=== PATIENT | male | born 1955 | race Caucasian/White ===

== ENCOUNTER → 2020-11-06 09:30 | Outpatient (BNVA) | payer MEDICAID, SELFPAY | PROVIDERS: Visit Provider Nurse Practitioner Family | DX: Z11.59 Encounter for screening for other viral diseases (principal); Z91.89 Other specified personal risk factors, not elsewhere classified; Z12.5 Encounter for screening for malignant neoplasm of prostate; M79.622 Pain in left upper arm; I73.9 Peripheral vascular disease, unspecified; I10 Essential (primary) hypertension; I25.10 Atherosclerotic heart disease of native coronary artery without angina pectoris; Z12.11 Encounter for screening for malignant neoplasm of colon | CPT/HCPCS: 86803; 87522; G0103 ==

== ENCOUNTER 2020-11-21 09:32 | Outpatient (CLI) | payer MEDICAID, SELFPAY ==
--- NOTE | 2020-11-21 09:43 | XRR_ITS ---
PROCEDURE INFORMATION: Exam: XR Left Shoulder Exam date and time: 11/21/2020 9:43 AM Age: 65 years old Clinical indication: Shoulder; Patient HX: Pain on left side after using shovel; Additional info: Acute pain TECHNIQUE: Imaging protocol: XR Left shoulder. Views: 2 or more views. COMPARISON: CR Chest 2 views* [id number] 10/06/2015 11:46 AM FINDINGS: Bones/joints: Visualized portions of the clavicle normal. Moderate degenerative changes of the acromioclavicular joint. Glenohumeral joint normal; Scapula normal; Visualized ribs and visualized pulmonary parenchyma normal; Coracoid process normal Soft tissues: Normal. XR/XR shoulder LT min 2V* [id number] IMPRESSION: Moderate degenerative changes of the acromioclavicular joint.
--- NOTE | 2020-11-21 09:43 | XRR_ITS ---
PROCEDURE INFORMATION: Exam: XR Cervical Spine Exam date and time: 11/21/2020 9:43 AM Age: 65 years old Clinical indication: Neck pain; Prior surgery; Surgery type: Jaw; Patient HX: Pain on left side after using shovel; Additional info: Acute pain TECHNIQUE: Imaging protocol: XR of the cervical spine. Views: 2 or 3 views. COMPARISON: CR Chest 2 views* [id number] 10/06/2015 11:46 AM FINDINGS: Bones/joints: Alignment is normal. posterior vertebral line and the spinal laminar line normal; odontoid process normal; no fracture; degenerative disc disease most pronounced C3-C4, C4-C5, C5-C6 and C6-C7 reflected as disk space narrowing and anterior osteophyte formation. Soft tissues: Unremarkable. XR/XR cervical spine 3V* [id number] IMPRESSION: Severe degenerative disc disease most pronounced C3-C4, C4-C5, C5-C6 and C6-C7 reflected as disk space narrowing and anterior osteophyte formation.
== END 2020-11-21 09:33 | disposition home or self-care (01) ==
PROVIDERS: PCP Nurse Practitioner Family; Visit Provider Nurse Practitioner Family
DX: M79.622 Pain in left upper arm (principal); M50.31 Other cervical disc degeneration, high cervical region
CPT/HCPCS: 72040; 73030

== ENCOUNTER → 2020-12-01 08:38 | Outpatient (BNVA) | payer MEDICAID, SELFPAY | PROVIDERS: PCP Nurse Practitioner Family; Referring Provider Nurse Practitioner Family; Visit Provider Orthopaedic Surgery | DX: M79.622 Pain in left upper arm (principal); M47.812 Spondylosis without myelopathy or radiculopathy, cervical region | CPT/HCPCS: 72040 ==

== ENCOUNTER 2021-01-19 12:54 | Outpatient (CLI) | payer MEDICAID, SELFPAY ==
--- NOTE | 2021-01-19 12:59 | MR_ITS ---
WS: [id number] MRI CERVICAL SPINE NONCONTRAST HISTORY: Neck and LEFT shoulder pain. COMPARISON: None available. Technique: Multiplanar, multisequence noncontrast imaging of the cervical spine. Multilevel advanced degenerative disc disease and osteophytosis. Most significant degenerative change s are at C3-4, C4-5 and C5-6. Signal within the cervical cord is normal. Visualized posterior fossa is unremarkable. Craniocervical junction, C1 and C2 relationship, odontoid process and soft tissues are normal. C2-C3: Central disc protrusion is very small. No stenosis. C3-C4: Moderate diffuse osteophytic ridging with disc bulging and a central disc protrusion. Deformit y of the cervical cord by the disc protrusion and osteophytes. Severe central and bilateral foraminal stenosis. RIGHT foraminal stenosis rated in the LEFT. Moderate facet joint arthritis. C4-C5: Diffuse osteophytic ridging and annular disc bulging with a central disc protrusion. Severe ce ntral and bilateral foraminal stenosis. Moderate facet joint arthritis. C5-C6: Diffuse osteophytic ridging and annular disc bulging. Severe central and bilateral foraminal s tenosis and facet arthritis. C6-C7: Small RIGHT foraminal osteophytes with mild foraminal narrowing. C7-T1: Normal. Paraspinal soft tissue are normal. MR/MR cervical spin wo con* [id number] IMPRESSION: 1. Severe central and bilateral foraminal stenosis at C3-4, C4-5 and C5-6 due to combination of osteophytic ridging, disc protrusions and facet arthritis. 2. Small RIGHT foraminal osteophyte at C6-7 with minimal narrowing of the fora men.
== END 2021-01-19 12:55 | disposition home or self-care (01) ==
LOC: RADSHAW 12:55
PROVIDERS: PCP Nurse Practitioner Family; Visit Provider Orthopaedic Surgery
DX: M54.2 Cervicalgia (principal); M25.512 Pain in left shoulder; M48.02 Spinal stenosis, cervical region; M25.78 Osteophyte, vertebrae
CPT/HCPCS: 72141

== ENCOUNTER 2021-02-01 15:00 | Outpatient (CLI) | payer MEDICAID, SELFPAY ==
--- NOTE | 2021-02-01 15:15 | MR_ITS ---
WS: [id number] MRI LEFT SHOULDER HISTORY: M54.2 - Cervicalgia COMPARISON: 11/21/2020 radiograph TECHNIQUE: Multiplanar sequences of the shoulder joint are submitted. The study is significantly compromised by motion artifact. Patient was unable to complete this examin ation and only a few sequences are submitted. Mild AC joint hypertrophy with osteophyte encroachment upon the supraspinatus muscle and tendon at th e medial humeral head. Moderate amount of fluid in the subacromial and subdeltoid bursa. No os acromi on. Biceps tendon is at the bicipital groove with increased fluid along the tendon sheath. Moderate atrophy and edema within the supraspinatus. There is a large amount of abnormal signal in th e expected location of the supraspinatus tendon beginning near the medial humeral head. Favor full-th ickness tear with retraction of the tendon. Large amount of fluid in the subscapularis recess. Evalua tion of the subscapularis and infraspinatus tendons is limited. There is a small amount of fluid axil maddy pouch. MR/MR shoulder LT wo con* [id number] IMPRESSION: 1. Extremely limited evaluation of the LEFT shoulder due to motion. Patient wa s unable to complete this examination secondary to pain. 2. Full-thickness tear of the supraspinatus tendon with retraction medial to t he humeral head. 3. Supraspinatus atrophy and edema. 4. AC joint arthritis with encroachment upon the rotator cuff.
== END 2021-02-01 15:01 | disposition home or self-care (01) ==
LOC: RADSHAW 15:02
PROVIDERS: PCP Nurse Practitioner Family; Visit Provider Orthopaedic Surgery
DX: M54.2 Cervicalgia (principal); M13.812 Other specified arthritis, left shoulder; R60.0 Localized edema; M75.102 Unspecified rotator cuff tear or rupture of left shoulder, not specified as traumatic
CPT/HCPCS: 73221

== ENCOUNTER → 2021-03-01 10:33 | Outpatient (BNVA) | payer MEDICAID, SELFPAY | PROVIDERS: PCP Nurse Practitioner Family; Referring Provider Orthopaedic Surgery; Visit Provider Anesthesiology Pain Medicine | DX: G89.29 Other chronic pain (principal); M48.02 Spinal stenosis, cervical region; M25.512 Pain in left shoulder; F17.210 Nicotine dependence, cigarettes, uncomplicated | CPT/HCPCS: 99205 ==

== ENCOUNTER → 2021-03-23 10:06 | Outpatient (BNVA) | payer MEDICAID, SELFPAY | PROVIDERS: PCP Nurse Practitioner Family; Visit Provider Orthopaedic Surgery | DX: Z20.822 Contact with and (suspected) exposure to COVID-19 (principal); Z01.812 Encounter for preprocedural laboratory examination | CPT/HCPCS: 87635 ==

== ENCOUNTER 2021-03-29 08:29 | Day surgery (SDC) | payer MEDICAID, SELFPAY ==
[2021-03-28 11:41] VITALS: BMI 18.0
[2021-03-29] VITALS (8 sets, daily range): BP systolic 120–165; BP diastolic 68–113; PULSE 88–128; RESP 16–20; TEMP 36.3–36.7; O2SAT 94–100
[2021-03-29] MEDS: sodium chloride 0.9% 1,000 ML 30 ML IV (09:05)
--- NOTE | 2021-03-29 09:24 | ANES.PREANE2 ---
Pre-Anesthetic Assessment Pre-Anesthetic Assessment: Height/Weight: Height 1.7 m Weight 52.163 kg Temp Pulse Resp BP Pulse Ox 98.0 F 94 18 127/76 97 03/29/21 09:01 03/29/21 09:01 03/29/21 09:01 03/29/21 09:01 03/29/21 09:01 Preop Diagnosis: Rotator cuff tear Left shoulder Proposed Procedure: Operation Date: 03/29/21 10:05 Proposed Procedures p Shoulder Arthroscopy 17492 M75.102(Left) - Joni Aguirre MD s Rotator Cuff Repair(Left) - Joni Aguirre MD Was Beta Donnie taken within 24 hours: N/A Was Clonidine taken within 24 hours: N/A Last intake: Intake Last Liquid Date 03/28/21 Last Liquid Time 20:00 Last Solid Date 03/28/21 Last Solid Time 17:00 Social: Social History: Tobacco Packs per day: 1 Comment: Smoked today. Exam: Pre-Anes Outpt Exam: alert, oriented x 3, clear to auscultation bilaterally (Expiratory wheeze.) and regular rate & rhythm Airway: Submandibular: WNL Cervical ROM: WNL MP: 2 Dentition: False Additional comments: Upper denture, poor dentition, missing most mandibular teeth. History/ROS: No significant complaints Pulmonary: Pulmonary: COPD CV/HEM: CV/HEM: CAD (Stents) and HTN Anesthetic Plan: ASA status: 3 Anesthesia: Anesthesia Evaluation, General and Regional (specify below) Other: Interscalene block Risk of > 500 ml blood loss (7ml/kg in children): No PFSH Anesthesia PFSH: Medical History ASHD (arteriosclerotic heart disease) CAD (coronary artery disease) Current smoker History of alcohol abuse Hypertension Mixed hyperlipidemia Myocardial infarct Peripheral vascular disease of extremity S/P angiogram of extremity Surgical History History of appendectomy Hx of tonsillectomy Family History Sister CAD (coronary artery disease), Onset Age: 50 Mother CAD (coronary artery disease), Onset Age: 30 Other Hypertension Denies family history of Cancer Social History Quit status (tobacco): not considering quitting Second hand smoke exposure: No Alcohol intake: never Desire information about alcohol rehabilitation?: No Desire information about substance/drug rehabilitation?: No Data Anesthesia Cardiac Studies: No Data to Display
--- NOTE | 2021-03-29 10:17 | P.HP_ITS ---
Same Day Surgery H&P Indication for Procedure/HPI DATE OF PROCEDURE: March 29, 2021 CHIEF COMPLAINT/INDICATIONFOR SURGICAL PROCEDURE: Left shoulder pain since spring with MRI showing tear left rotator cuff. Here for left rotator cuff repair PREOP DIAGNOSIS: Rotator cuff tear Left shoulder PLANNED PROCEDRUE: Operation Date: 03/29/21 10:05 Proposed Procedures p Shoulder Arthroscopy 29867 M75.102(Left) - Joni Aguirre MD s Rotator Cuff Repair(Left) - Joni Aguirre MD Medications/Allergies* Home Medications Medication Instructions Recorded Confirmed Type acetaminophen 500 mg capsule 1,500 mg PO .HS PRN cap 07/14/20 03/29/21 History cimetidine 200 mg tablet 200 mg PO BEDTIME tab 07/14/20 03/29/21 History Allergies/Adverse Reactions Allergy/AdvReac Type Severity Reaction Status Date / Time No Known Allergies Allergy Verified 03/28/21 11:39 Pertinent History/Comorbid Conditions* Medical History (Updated 11/06/20 @ 09:22 by Geovanna Rodriguez APRN) ASHD (arteriosclerotic heart disease) CAD (coronary artery disease) Current smoker History of alcohol abuse Hypertension Mixed hyperlipidemia Myocardial infarct Peripheral vascular disease of extremity S/P angiogram of extremity Surgical History (Updated 11/06/20 @ 09:22 by Geovanna Rodriguez APRN) History of appendectomy Hx of tonsillectomy Family History (Updated 11/06/20 @ 09:25 by Geovanna Rodriguez APRN) CAD (coronary artery disease) Sister, Onset Age: 50 Mother, Onset Age: 30 Hypertension Denies family history of Cancer Social History Quit status (tobacco): not considering quitting Second hand smoke exposure: No Alcohol intake: never Desire information about alcohol rehabilitation?: No Desire information about substance/drug rehabilitation?: No Pertinent Exam Findings alert, oriented x 3, clear to auscultation bilaterally and regular rate & rhythm Recommendations Surgery/Procedure today Coding Level of Care Code Acute Live In Companion 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
--- NOTE | 2021-03-29 12:58 | PM.OP ---
Operative Report Date of procedure: March 29, 2021 Pre-op Diagnosis: Rotator cuff tear Left shoulder Post-op diagnosis: same Post-op Findings: Full-thickness tear, type II acromion Procedure Done: Left arthroscopic rotator cuff repair, left subacromial decompression Implants: Monroy and Nephew Helicoil 4.5 mm anchors x2, Monroy [employer] Nephew Helicoil knotless, Pathology: none sent Anesthesia: General Estimated blood loss (mL): 10 Findings: The patient had a full-thickness tear of his left supraspinatus tendon beginning from the biceps tendon posteriorly approximately 2 cm with approximately 2-1/2 cm of tendinous retraction. Overall tendon and bone quality was excellent. His biceps tendon was stable in the bicipital groove. He had spurring along the leading edge of his acromion. He had no degenerative changes of his humeral head or glenoid Condition: stable Disposition: PACU Procedure: The patient was taken to the operating room where he was given an interscalene block and a general anesthesia. He was positioned in the lateral position with his left arm in gentle traction and draped in the usual fashion. He was given 2 g of Ancef. General anesthesia was performed. The shoulder was entered through a posterior portal to centimeters inferior medial to the posterior corner acromion. A scope cannula and trocar were driven into the glenohumeral joint. An 8 mm inflow cannula was placed anteriorly. The full-thickness tearing of the rotator cuff was identified. The biceps tendon was probed and found to be stable in the bicipital groove. The scope was then redirected into the subacromial space. Utilizing the Monroy and Nephew Werewolf probe X bursal tissue was removed and the rotator cuff tear was outlined. The tear seem to be a traumatic tear involving the entirety of the supraspinatus. Initial attention was paid to the undersurface of acromion. Utilizing a 5 5 acromionizer approximately 4 mm of anterior inferior acromion were removed to provide vascularity and make room for the repair. Tendon and bone quality was excellent and conditions were met for our repair. An incisor shaver was used to debride the tuberosity. A Monroy and Nephew Helicoil 4.5 mm anchor was placed in the posterior debrided tuberosity. 80 Monroy and [employer] FirstPass suture passer was used to shuttle each limb of tape through the posterior supraspinatus tendon approximately 8 mm from the retracted edge and approximately 8 mm apart. A second anchor was placed in the anterior debrided tuberosity and sutures passed in identical fashion. Each suture was secured with a sliding Perez knot and a half hitch bringing the medial cuff to bone. All 4 tapes were then passed through a knotless anchor which was placed in the central more lateral position. This brought the suture over the more lateral cuff tendon stabilizing the lateral rotator cuff. The repair was probed and found to be stable. Portals were closed with 3-0 Prolene. Sterile dressings were applied. The patient was placed in a sling extubated taken to recovery room in stable condition.
--- NOTE | 2021-03-29 15:33 | ANE.PACU2 ---
Inpatient post-anesthesia follow up: Airway intact: Yes Vital signs: Temperature 97.8 F Pulse Rate 88 Respiratory Rate 18 Blood Pressure 120/68 Pulse Oximetry 98 Oxygen Delivery Me thod Room Air Oxygen Flow Rate 8 Fraction of Inspir ed Oxygen Hydration adequate: Yes Nausea and vomiting: No Pain level: 1 Mental status: Baseline
== END 2021-03-29 14:35 | disposition home or self-care (01) ==
PROVIDERS: PCP Nurse Practitioner Family; Visit Provider Orthopaedic Surgery
PROC: (CPT 29805; principal; 2021-03-29 09:55)
PROC: (CPT 29826; 2021-03-29 09:55)
DX: M25.512 Pain in left shoulder (principal); I10 Essential (primary) hypertension; E78.2 Mixed hyperlipidemia; F17.210 Nicotine dependence, cigarettes, uncomplicated; I25.2 Old myocardial infarction; Z82.49 Family history of ischemic heart disease and other diseases of the circulatory system
CPT/HCPCS: 29826; 29827; 64415; 76942; C1713; J0690; J2250; J2370; J2704; J2710; J2795; J3010; J3490; J7030

== ENCOUNTER 2021-03-30 17:38 | Emergency (ER) | payer MEDICAID, SELFPAY ==
[2021-03-30 17:55] VITALS: BP 159/84; PULSE 97; RESP 20; TEMP 36.3; O2SAT 97; BMI 17.7
[2021-03-30 18:36] VITALS: BP 145/69; PULSE 77; RESP 16; O2SAT 100
--- NOTE | 2021-03-30 18:36 | ED_ITS ---
HPI - Recheck/Abnormal Lab/Rx General: Chief Complaint: Recheck/Abnormal Lab/Rx Stated Complaint: l shoulder pain s/p surgery yesterday Time Seen by Provider: 03/30/21 18:03 History of Present Illness: HPI narrative: Patient presents requesting pain medication. He was prescribed oxycodone and he states once he received that from the pharmacy realized that he did not want take that because this made him feel bad. He he said he told the surgeon that he did not want any of those type of products. complaint: other Review of Systems Const: Denies: fever(s) or chills Musc: Reports: joint pain (Postprocedural no change in condition. Desiring different pain medicine on) Psych: Denies: anxiety or depression PFSH ED PFSH: Medical History ASHD (arteriosclerotic heart disease) CAD (coronary artery disease) Current smoker History of alcohol abuse Hypertension Mixed hyperlipidemia Myocardial infarct Peripheral vascular disease of extremity S/P angiogram of extremity Surgical History History of appendectomy Hx of tonsillectomy Family History Sister CAD (coronary artery disease), Onset Age: 50 Mother CAD (coronary artery disease), Onset Age: 30 Other Hypertension Denies family history of Cancer Social History Quit status (tobacco): not considering quitting Second hand smoke exposure: No Alcohol intake: never Desire information about alcohol rehabilitation?: No Desire information about substance/drug rehabilitation?: No Physical Exam Const: COMMON NORMALS: no acute distress GENERAL APPEARANCE: cooperative Resp: COMMON NORMALS: normal respiratory effort Extremity: OTHER: Dressing in place. Distal neurovascular intact. Course Vital Signs: Vital signs: Vital Signs Temperature 97.4 F L 03/30/21 17:55 Pulse Rate 97 03/30/21 17:55 Respiratory Rate 20 H 03/30/21 17:55 Blood Pressure 159/84 03/30/21 17:55 Pulse Oximetry 97 03/30/21 17:55 Discharge Plan Discharge Patient Disposition: Home Clinical Impression: Other acute postprocedural pain Condition: Stable Prescriptions: New Celebrex 100 mg capsule 200 mg PO BID Qty: 20 RF: 0 No Action cimetidine [Tagamet HB] 200 mg tablet 200 mg PO BEDTIME RF: 0 gabapentin 300 mg capsule 300 mg PO TID Qty: 90 RF: 0 nitroglycerin [Nitrostat] 0.4 mg tablet, sublingual 0.4 mg SUBLINGUAL Q5M PRN (Reason: chest pain) Qty: 90 RF: 3 acetaminophen 500 mg capsule 1,500 mg PO .HS PRN (Reason: Pain) RF: 0 rosuvastatin [Crestor] 5 mg tablet 5 mg PO DAILY Qty: 90 RF: 3 Brilinta 90 mg tablet 90 mg PO BID Qty: 180 RF: 3 oxycodone 5 mg tablet 5 mg PO Q4H PRN (Reason: pain) Qty: 40 RF: 0 Discharge Orders: Discharge ED (Routine); Ordered 03/30/21 Ordered By: Balaji Nair Referrals: Geovanna Rodriguez APRN [Primary Care Provider] - Discharge Diet: Usual diet Discharge Activity: Increase activity as tolerated Patient Instructions: Opioid Safety Activity Restrictions/Additional Instructions: Follow-up Dr. Aguirre as necessary. Can apply ice to shoulder area to help with any discomfort. Coding Level of Care Code ED Printing Gray Cloth Tender 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
== END 2021-03-30 18:53 | disposition home or self-care (01) ==
PROVIDERS: Emergency Provider Nurse Practitioner Family; PCP Nurse Practitioner Family
DX: G89.18 Other acute postprocedural pain (principal); I25.10 Atherosclerotic heart disease of native coronary artery without angina pectoris; I10 Essential (primary) hypertension; E78.2 Mixed hyperlipidemia; I25.2 Old myocardial infarction
CPT/HCPCS: 99282

== ENCOUNTER → 2021-04-26 10:37 | Outpatient (BNVA) | payer MEDICAID, SELFPAY | PROVIDERS: PCP Nurse Practitioner Family; Visit Provider Anesthesiology Pain Medicine | DX: G89.29 Other chronic pain (principal); M47.812 Spondylosis without myelopathy or radiculopathy, cervical region; M54.12 Radiculopathy, cervical region; M48.02 Spinal stenosis, cervical region; M25.519 Pain in unspecified shoulder; Z79.891 Long term (current) use of opiate analgesic | CPT/HCPCS: 99214 ==

== ENCOUNTER → 2021-05-21 12:35 | Outpatient (BNVA) | payer MEDICAID, SELFPAY | PROVIDERS: PCP Nurse Practitioner Family; Visit Provider Anesthesiology Pain Medicine | DX: M54.12 Radiculopathy, cervical region (principal); F17.210 Nicotine dependence, cigarettes, uncomplicated | CPT/HCPCS: 62321; J1100 ==

== ENCOUNTER → 2021-05-25 11:57 | Outpatient (BNVA) | payer MEDICAID, SELFPAY | PROVIDERS: PCP Nurse Practitioner Family; Visit Provider Nurse Practitioner Family | DX: Z00.00 Encounter for general adult medical examination without abnormal findings (principal); Z12.5 Encounter for screening for malignant neoplasm of prostate; I25.10 Atherosclerotic heart disease of native coronary artery without angina pectoris | CPT/HCPCS: 80053; 80061; 83036; 84153 ==

== ENCOUNTER → 2021-05-30 16:52 | Outpatient (BNVA) | payer MEDICAID, SELFPAY | PROVIDERS: PCP Nurse Practitioner Family; Visit Provider Internal Medicine | DX: Z20.822 Contact with and (suspected) exposure to COVID-19 (principal); Z01.812 Encounter for preprocedural laboratory examination | CPT/HCPCS: 87635 ==

== ENCOUNTER 2021-06-04 07:31 | Day surgery (SDC) | payer MEDICAID, SELFPAY ==
[2021-05-30 14:04] VITALS: BMI 2343.3
--- NOTE | 2021-06-04 07:10 | P.HP_ITS ---
Same Day Surgery H&P Indication for Procedure/HPI DATE OF PROCEDURE: June 04, 2021 CHIEF COMPLAINT/INDICATIONFOR SURGICAL PROCEDURE: Screening PREOP DIAGNOSIS: Rotator cuff tear Left shoulder PLANNED PROCEDURE: Operation Date: 06/04/21 08:45 Proposed Procedures p Colonoscopy 65619 G0121 Z12.11(Not Applicable) - Saurabh Hassan MD Medications/Allergies* Home Medications Medication Instructions Recorded Confirmed Type acetaminophen 500 mg capsule 1,500 mg PO .HS PRN cap 07/14/20 06/01/21 History cimetidine 200 mg tablet 200 mg PO BEDTIME tab 07/14/20 06/01/21 History Allergies/Adverse Reactions Allergy/AdvReac Type Severity Reaction Status Date / Time No Known Allergies Allergy Verified 05/25/21 10:36 Pertinent History/Comorbid Conditions* Medical History (Updated 05/25/21 @ 11:24 by FCO Saucedo) ASHD (arteriosclerotic heart disease) CAD (coronary artery disease) Current smoker History of alcohol abuse Mixed hyperlipidemia Myocardial infarct Peripheral vascular disease of extremity S/P angiogram of extremity Surgical History (Updated 05/09/21 @ 11:12 by Joni Aguirre MD) History of appendectomy Hx of tonsillectomy Family History (Updated 11/06/20 @ 09:25 by FCO Saucedo) CAD (coronary artery disease) Sister, Onset Age: 50 Mother, Onset Age: 30 Hypertension Denies family history of Cancer Social History Smoking and tobacco status: current every day smoker cigarettes Quit status (tobacco): not considering quitting Second hand smoke exposure: No Alcohol intake: never Desire information about alcohol rehabilitation?: No Desire information about substance/drug rehabilitation?: No Pertinent Exam Findings alert, oriented x 3, clear to auscultation bilaterally, regular rate & rhythm, operative site marked and procedure specific exam findings Recommendations Surgery/Procedure today Coding Level of Care Code Acute Activities Director Scouting 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
--- NOTE | 2021-06-04 07:53 | ANES.PREANE2 ---
Pre-Anesthetic Assessment Pre-Anesthetic Assessment: Height/Weight: Height 15.24 cm Weight 54.431 kg Preop Diagnosis: Rotator cuff tear Left shoulder Proposed Procedure: Operation Date: 06/04/21 08:45 Proposed Procedures p Colonoscopy 91034 G0121 Z12.11(Not Applicable) - Saurabh Hassan MD Was Beta Donnie taken within 24 hours: N/A Was Clonidine taken within 24 hours: N/A Social: Social History: Tobacco and No alcohol Exam: Pre-Anes Outpt Exam: alert, oriented x 3 and regular rate & rhythm Airway: Submandibular: WNL Cervical ROM: WNL MP: 2 Dentition: Chipped and False (uppers) Additional comments: Very poor dentition Pulmonary: Pulmonary: COPD CV/HEM: CV/HEM: CAD (stents), HTN and PVD Metabolic: Metabolic: Hyperlipidemia Musc/skel: Musc/skel: Lower Back Pain and OA/DJD Anesthetic Plan: ASA status: 3 Anesthesia: MAC Risk of > 500 ml blood loss (7ml/kg in children): No PFSH Anesthesia PFSH: Medical History ASHD (arteriosclerotic heart disease) CAD (coronary artery disease) Current smoker History of alcohol abuse Hypertension Mixed hyperlipidemia Myocardial infarct Peripheral vascular disease of extremity S/P angiogram of extremity Surgical History History of appendectomy Hx of tonsillectomy Family History Sister CAD (coronary artery disease), Onset Age: 50 Mother CAD (coronary artery disease), Onset Age: 30 Other Hypertension Denies family history of Cancer Social History Smoking and tobacco status: current every day smoker cigarettes Quit status (tobacco): not considering quitting Second hand smoke exposure: No Alcohol intake: never Desire information about alcohol rehabilitation?: No Desire information about substance/drug rehabilitation?: No Data Anesthesia Cardiac Studies: No Data to Display
[2021-06-04 08:17] VITALS: BP 143/84; PULSE 110; RESP 18; TEMP 36.8; O2SAT 97
[2021-06-04] MEDS: sodium chloride 0.9% 1,000 ML 30 ML IV (08:20)
[2021-06-04 09:24] VITALS: BP 92/55; PULSE 76; RESP 16; TEMP 36.5; O2SAT 98
[2021-06-04 09:48] VITALS: BP 121/73; PULSE 94; RESP 18; O2SAT 98
--- NOTE | 2021-06-04 14:14 | ANE.PACU2 ---
Inpatient post-anesthesia follow up: Airway intact: Yes Vital signs: Temperature 97.7 F Pulse Rate 94 Respiratory Rate 18 Blood Pressure 121/73 Pulse Oximetry 98 Oxygen Delivery Me thod Room Air Oxygen Flow Rate 3 Fraction of Inspir ed Oxygen Hydration adequate: Yes Nausea and vomiting: No Pain level: 1 Mental status: Baseline
== END 2021-06-04 10:05 | disposition home or self-care (01) ==
PROVIDERS: PCP Nurse Practitioner Family; Visit Provider Internal Medicine
PROC: 0DJD8ZZ Inspection of Lower Intestinal Tract, Via Natural or Artificial Opening Endoscopic (ICD-10-PCS; CPT 45378; principal; 2021-06-04 08:45)
DX: Z12.11 Encounter for screening for malignant neoplasm of colon (principal); D12.3 Benign neoplasm of transverse colon; K64.8 Other hemorrhoids; J44.9 Chronic obstructive pulmonary disease, unspecified; I25.10 Atherosclerotic heart disease of native coronary artery without angina pectoris; Z95.5 Presence of coronary angioplasty implant and graft; I10 Essential (primary) hypertension; M19.90 Unspecified osteoarthritis, unspecified site; F17.210 Nicotine dependence, cigarettes, uncomplicated; E78.2 Mixed hyperlipidemia; I25.2 Old myocardial infarction; Z82.49 Family history of ischemic heart disease and other diseases of the circulatory system
CPT/HCPCS: 45385; 88305; J2704; J7030

== ENCOUNTER → 2021-08-16 00:01 | Outpatient (BNVA) | payer MEDICAID, SELFPAY | PROVIDERS: PCP Nurse Practitioner Family; Visit Provider Orthopaedic Surgery | DX: Z20.822 Contact with and (suspected) exposure to COVID-19 (principal) | CPT/HCPCS: 87635 ==

== ENCOUNTER 2021-08-23 06:10 | Day surgery (SDC) | payer MEDICAID, SELFPAY ==
[2021-08-22 14:23] VITALS: BMI 19.5
[2021-08-23] VITALS (11 sets, daily range): BP systolic 127–175; BP diastolic 64–104; PULSE 92–112; RESP 18–20; TEMP 36.2–36.8; O2SAT 94–99
[2021-08-23] MEDS: acetaminophen 500 mg Tablet 1000 MG PO (06:38)
[2021-08-23] MEDS: sodium chloride 0.9% 1,000 ML 30 ML IV (06:39)
--- NOTE | 2021-08-23 06:54 | ANES.PREANE2 ---
Pre-Anesthetic Assessment Height/Weight: Height 1.68 m Weight 54.885 kg Temp Pulse Resp BP Pulse Ox 97.5 F L 94 18 127/66 97 08/23/21 06:23 08/23/21 06:23 08/23/21 06:23 08/23/21 06:23 08/23/21 06:23 Preop Diagnosis: Screening Operation Date: 08/23/21 07:00 Proposed Procedures p Manipulation L Shoulder Under Anesthesia 68829/m75.02(Left) - Joni Aguirre MD Familial anesthetic complications: None Was Beta Donnie taken within 24 hours: N/A Was Clonidine taken within 24 hours: N/A Last intake: Intake Last Liquid Date 08/22/21 Last Liquid Time 23:30 Last Solid Date 08/22/21 Last Solid Time 20:00 Social Alcohol (Hx of ETOH abuse) and Tobacco Exam alert, oriented x 3 and regular rate & rhythm Wheezing b/l Airway Submandibular: within normal limits Cervical ROM: Other (Limited due to pain, able to extend flex full ROM w/ effort) Mallampati: Class I Dentition: chipped and partials Comments: Comments: very poor dention Pulmonary Chronic Obstructive Pulmonary Disease CV/HEM Coronary Artery Disease (S/P coronary stents), Myocardial Infarction and Peripheral Vascular Disease METS > 4 None reported Hepatic None reported GI Gastroesophageal Reflux Disease Symptomatic GERD with vomiting and nausea at night when does not take medications Metabolic None reported Musc/skel None reported Neuropsych None reported Anesthetic Plan ASA status: 3 Anesthesia: Anesthesia Evaluation and Regional (specify below) (PRN post op block if needed) Other: We discussed risk and benefits of general anesthesia including PONV, sore throat (sometimes severe), corneal abrasion, positioning and peripheral nerve injuries, life threatening allergic reaction, post operative ICU admission requiring prolonged intubation, stroke, heart attack, , and rare incidences of recall. Patient consents to proceed with general anesthesia. We discussed risk and benefits of nerve block for post op pain control including management of pain and titration of pain medications as signs/symptoms of nerve block wearing off begin to appear and/or prior bed. We discussed risk of failed nerve block, vascular injury or other vital structure injury, abscess/infection, LAST, and nerve injury. Risk of > 500 ml blood loss (7ml/kg in children): No Medications/Allergies Home Medications Medication Instructions Recorded Confirmed Last Taken Type nitroglycerin 0.4 mg sublingual 0.4 mg SUBLINGUAL Q5M PRN #90 tab 10/06/19 08/22/21 Unknown Rx tablet (Nitrostat) acetaminophen 500 mg capsule 1,500 mg PO .HS PRN cap 07/14/20 08/23/21 08/22/21 History cimetidine 200 mg tablet (Tagamet 200 mg PO BEDTIME tab 07/14/20 08/23/21 08/22/21 History HB) rosuvastatin 5 mg tablet (Crestor) 5 mg PO DAILY #90 tab 07/27/20 08/23/21 08/13/21 Rx ticagrelor 90 mg tablet (Brilinta) 90 mg PO BID #180 tab 12/25/20 08/22/21 08/13/21 Rx celecoxib 200 mg capsule 200 mg PO Q12H 15 Days #30 cap 08/23/21 Unknown Rx oxycodone 5 mg tablet 5 mg PO Q4H PRN #40 tab 08/23/21 Unknown Rx Allergies Allergy/AdvReac Type Severity Reaction Status Date / Time No Known Allergies Allergy Verified 08/08/21 13:36 Current Medications Generic Name Dose Route Start Last Admin Trade Name Freq PRN Reason Stop Dose Admin Sodium Chloride 1,000 mls @ 30 mls/hr 08/23/21 06:15 08/23/21 06:39 Sodium Chloride 0.9% IV 08/24/21 06:14 30 mls/hr .Q24H CHRISTOPH Administration PFSH Anesthesia Medical History ASHD (arteriosclerotic heart disease) CAD (coronary artery disease) Current smoker History of alcohol abuse Mixed hyperlipidemia Myocardial infarct Peripheral vascular disease of extremity S/P angiogram of extremity Surgical History History of appendectomy Hx of tonsillectomy Family History Sister CAD (coronary artery disease), Onset Age: 50 Mother CAD (coronary artery disease), Onset Age: 30 Other Hypertension Denies family history of Cancer Social History Smoking and tobacco status: current every day smoker cigarettes Quit status (tobacco): not considering quitting Second hand smoke exposure: No Alcohol intake: never Desire information about alcohol rehabilitation?: No Desire information about substance/drug rehabilitation?: No Data Anesthesia Cardiac Studies: No Data to Display
--- NOTE | 2021-08-23 07:01 | W.PM.OPSUD ---
Surgery/Procedure H&P Update DATE OF PROCEDURE: August 23, 2021 DATE H&P PERFORMED: 08/08/21 H&P UPDATE INFORMATION: I have reviewed H&P completed within last 30 days PREOP DIAGNOSIS: Arthrofibrosis status post rotator cuff repair 03/29/2021 PLANNED PROCEDURE: Operation Date: 08/23/21 07:00 Proposed Procedures Diagnostic arthroscopy, release of adhesions, other inidicated procedures.
[2021-08-23] MEDS: famotidine 20 mg/2 mL INJ IVP (07:04)
--- NOTE | 2021-08-23 08:24 | P.OP_ITS ---
Operative Report Date of procedure: August 23, 2021 Pre-op diagnosis: Preop Diagnosis Arthrofibrosis status post rotator cuff repair 03/29/2021 Post-op diagnosis: same Post-op diagnosis: The patient had adhesions between his deltoid and superior rotator cuff. His rotator cuff was healed. Procedure done: Arthroscopic debridement of adhesions subacromial space and glenohumeral joint (extensive debridement Pathology: none sent Surgeon: Joni Aguirre Anesthesia: General Estimated blood loss (mL): 10 Findings: The patient had adhesions between the deltoid and rotator cuff and the lateral humerus. The repair from both the bursal and articular aspect was healed. Preoperative motion was to 140 degrees of flexion compared to 170 on the contralateral side. He had 45 degrees of external rotation compared to 60 deg rylie on the contralateral side. Condition: stable Brief History: Mr. Corrales underwent arthroscopic left rotator cuff repair in March with persistent loss of motion and pain despite efforts with home exercise program. Unfortunately physical therapy was not a covered Medicaid benefit. Due to pain and functional limitations he was taken back to the operating room today for release of adhesions and evaluation of his rotator cuff repair. Procedure: The patient was given 2 g of Ancef and a general anesthesia. Initially the range of motion was noted with losses of flexion and external rotation noted as above and the operative findings. The shoulder was manipulated 270 degrees of flexion identical to the contralateral side with adhesions felt to release. At the with the elbow at his side it was then externally rotated to 60 degrees again with additional adhesions are released. he was positioned in the lateral position a timeout was performed. He was prepped and draped in the usual fashion with his left arm in 15 pounds of traction. The subacromial space was initially entered through the previously placed posterior portal a anterior lateral portal were opened up through previous scars. The bursal rotator cuff was inspected and found to be free of healing. Adhesions were identified between the deltoid and the humerus predominantly laterally and anteriorly. Utilizing the [employer] probe adhesions are released and hemostasis was sequentially released beginning in the lateral subacromial space and lateral deltoid humeral interval progressing anteriorly and finally posterior. Accomplished. The scope was then moved to the glenohumeral joint and the articular aspect the rotator cuff identified. Hematoma was identified which was removed with the incisor shaver. Previously placed stitches were noted. No significant articular sided or other rotator cuff tearing was identified. Debridement was accomplished of synovial tissue in the area of the rotator interval and the undersurface of the rotator cuff. Arthroscopy equipment was removed. Portals were closed with 3-0 Prolene. Sterile dressings were applied. The patient was placed in a sling, extubated, and taken recovery room in stable condition
[2021-08-23] MEDS: HYDROmorphone 1 mg/mL INJ 1 mL 0.5 MG IVP (08:41)
--- NOTE | 2021-08-23 13:14 | ANE.PACU2 ---
Inpatient post-anesthesia follow up: Airway intact: Yes Vital signs: Temperature 98.2 F Pulse Rate 96 Respiratory Rate 18 Blood Pressure 172/72 Pulse Oximetry 97 Oxygen Delivery Me thod Room Air Oxygen Flow Rate 6 Fraction of Inspir ed Oxygen Hydration adequate: Yes Nausea and vomiting: No Pain level: 5 Mental status: Baseline
== END 2021-08-23 11:18 | disposition home or self-care (01) ==
PROVIDERS: PCP Nurse Practitioner Family; Visit Provider Orthopaedic Surgery
PROC: (CPT 29805; principal; 2021-08-23 07:00)
DX: M24.612 Ankylosis, left shoulder (principal); M75.02 Adhesive capsulitis of left shoulder; J44.9 Chronic obstructive pulmonary disease, unspecified; I25.10 Atherosclerotic heart disease of native coronary artery without angina pectoris; Z95.5 Presence of coronary angioplasty implant and graft; I25.2 Old myocardial infarction; I73.9 Peripheral vascular disease, unspecified; K21.9 Gastro-esophageal reflux disease without esophagitis; E78.2 Mixed hyperlipidemia; Z82.49 Family history of ischemic heart disease and other diseases of the circulatory system
CPT/HCPCS: 29823; J0690; J1170; J2710; J3010; J3490; J7030

== ENCOUNTER → 2021-10-16 09:50 | Outpatient (BNVA) | payer MEDICAID, SELFPAY | PROVIDERS: PCP Nurse Practitioner Family; Visit Provider Nurse Practitioner Family | DX: Z98.890 Other specified postprocedural states (principal); M75.02 Adhesive capsulitis of left shoulder | CPT/HCPCS: 99213 ==

== ENCOUNTER → 2021-12-17 13:53 | Outpatient (BNVA) | payer MEDICAID, SELFPAY | PROVIDERS: PCP Nurse Practitioner Family; Visit Provider Internal Medicine | DX: I73.9 Peripheral vascular disease, unspecified (principal); I10 Essential (primary) hypertension; I25.10 Atherosclerotic heart disease of native coronary artery without angina pectoris; F17.210 Nicotine dependence, cigarettes, uncomplicated | CPT/HCPCS: 99214 ==

== ENCOUNTER 2022-10-01 17:52 | Inpatient (IN) | payer MEDICARE, MEDICAID, SELFPAY ==
[2022-10-01 17:52] VITALS: BP 136/87; PULSE 78; RESP 18; TEMP 36.8; O2SAT 100; BMI 19.3
--- NOTE | 2022-10-01 17:54 | ECG_ITS ---
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 Measurements Intervals [place] Rate: 90 P: 79 IA: 182 QRS: 80 QRSD: 93 T: 100 QT: 388 QTc: 475 Interpretive Statements SINUS RHYTHM INFERIOR MYOCARDIAL INFARCTION , POSSIBLY ACUTE [40+ ms Q WAVE AND/OR ST/T ABNORMALITY IN II/aVF] ACUTE PA Compared to ECG 10/10/2015 06:06:34 Myocardial infarct finding now present Electronically Signed On 10-02-2022 17:50:35 CDT by Nate Antonio M.D. [email or web address]
--- NOTE | 2022-10-01 17:59 | W.ED.CHESTPA ---
HPI - Chest Pain General: Chief Complaint: Chest Pain Stated Complaint: cp Time Seen by Provider: 10/01/22 17:57 History of Present Illness: Patient presents to the ER by EMS on STEMI alert. Patient began having chest pain 30 minutes prior. Patient does have a cardiac history. Patient was outside working and started having chest pain patient took 3 nitro and 324 mg aspirin total. EKG was immediately obtained that showed acute CT Dr. 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 Onset (ago): minute(s) (30 minutes prior) Timing of current episode: constant Prior episodes: Yes Onset: during exertion Pain location: left chest Severity: severe Quality: similar to prior CT Relieving factors: nothing Exacerbating factors: exertion Treatment prior to arrival: aspirin and nitroglycerin Review of Systems General: Reports: 10 or more systems reviewed and unremarkable except in HPI and below PFSH ED PFSH: Medical History (Updated 10/01/22 @ 18:08 by Nate Antonio M.D) ASHD (arteriosclerotic heart disease) Chest pain Current smoker GERD (gastroesophageal reflux disease) History of alcohol abuse Lumbar back pain with radiculopathy affecting lower extremity Mixed hyperlipidemia Myocardial infarct Peripheral vascular disease of extremity S/P angiogram of extremity Surgical History History of appendectomy History of facial fracture repair right cheek History of repair of rotator cuff Hx of tonsillectomy Family History Sister CAD (coronary artery disease), Onset Age: 50 Mother CAD (coronary artery disease), Onset Age: 30 Other Hypertension Denies family history of Cancer Social History Smoking and tobacco status: current every day smoker cigarettes Quit status (tobacco): not considering quitting Second hand smoke exposure: No Alcohol intake: current Alcohol intake frequency: holidays/special occasions only Alcohol type: beer and hard liquor Desire information about alcohol rehabilitation?: No Substance/Drug Use: current Substance/Drug use frequency: daily Other substance/drug use details: Medicinal purposes Desire information about substance/drug rehabilitation?: No Household members: spouse Marital status: Current occupational status: disabled Current gender identity: Male Physical Exam Const: COMMON NORMALS: average body habitus, patient oriented x3, no limitations, alert and well nourished HENMT: COMMON NORMALS: normocephalic, atraumatic, hearing grossly normal bilaterally, external ears normal, Normal external nose present and moist oral mucous membranes HEAD & SCALP: normocephalic and atraumatic NOSE: Normal external nose present EXTERNAL EAR: Yes external ears normal Eye: COMMON NORMALS: Equal, round and reactive pupils present, EOMs intact bilaterally, conjunctivae normal and no scleral icterus CONJUNCTIVA: Yes conjunctivae normal PUPIL: Yes Equal, round and reactive pupils present Neck/C-Spine: COMMON NORMALS: no JVD Resp: COMMON NORMALS: normal respiratory effort, No retractions, No use of accessory muscles and clear to auscultation bilaterally AUSCULTATION: clear to auscultation bilaterally Cardio: COMMON NORMALS: no JVD, regular rate, regular rhythm, S1 normal heart sound present and S2 normal heart sound present RATE: regular rate RHYTHM: regular rhythm HEART SOUNDS: S1 normal heart sound present and S2 normal heart sound present GI: COMMON NORMALS: Normal to inspection, nondistended, normoactive bowel sounds present, Soft to palpation, non-tender, No hepatosplenomegaly present and no masses PALPATION: Yes Soft to palpation and Yes No hepatosplenomegaly present Neuro: COMMON NORMALS: patient oriented x3 SENSORIUM/ORIENTATION: Yes alert Course Vital Signs: Vital signs: Vital Signs Temperature 98.2 F 10/01/22 17:52 Pulse Rate 78 10/01/22 17:52 Respiratory Rate 18 10/01/22 17:52 Blood Pressure 136/87 10/01/22 17:52 Pulse Oximetry 100 10/01/22 17:52 MDM - Chest Pain Medical Decision Making Patient was seen upon arrival by EMS EKG was immediately obtained which showed acute CT of ST segment elevation in 2 3 and aVF. And also had ST depression in V4 and V5. Dr. Antonio was present in the ED agreed with acute CT and will be taken the patient immediately to [facility]. Patient was given Plavix 600 mg p.o., loading dose of heparin, and transported to the [facility]idential [facility]. Differential Diagnosis Likely acute myocardial infarction; Unlikely acute massive pulmonary embolism, acute respiratory failure, cardiac arrest or sudden cardiac Medical Records I reviewed the patient's medical records. Lab Data I reviewed the patient's lab results. EKG Data EKG 1: I personally reviewed and interpreted this EKG as follows: EKG interpretation date: 10/01/22 EKG interpretation time: 17:54 Prior EKG tracings: not available for review Interpretation: EKG showed ventricular rate of 90 bpm, NH interval of 182, QRS duration of 93, QTc of 435, normal sinus rhythm with inferior myocardial infarction with ST elevation in [address] depression in V4 and V5. Discharge Plan Discharge Clinical Impression: Acute CT Condition: Stable Prescriptions: No Action acetaminophen 500 mg capsule 500 mg PO Q6H PRN (Reason: fever) Qty: 30 0RF omeprazole 20 mg capsule,delayed release(DR/EC) 20 mg PO .qhs Qty: 30 5RF nitroglycerin 0.4 mg tablet, sublingual 0.4 mg sublingual Q5M PRN (Reason: chest pain) Qty: 10 0RF Rx Instructions: do not exceed 3 doses per episode meloxicam 15 mg tablet 15 mg PO DAILY Qty: 30 5RF triamcinolone acetonide 0.1 % cream 1 applic topical BID Qty: 30 0RF rosuvastatin [Crestor] 5 mg tablet 5 mg PO DAILY Qty: 90 3RF Brilinta 90 mg tablet 90 mg PO BID Qty: 180 3RF tramadol 50 mg tablet 50 mg PO DAILY PRN (Reason: pain) 30 Days Qty: 30 3RF Referrals: Senthil Jimenez MD [Primary Care Provider] - Coding Level of Care Code ED Civil Transportation Engineer for [facility]
--- NOTE | 2022-10-01 18:00 | XACV_ITS ---
Exam Room: 2 Ht: 168 cm Wt: 54 kg BSA: 1.59 m2 Gender: Male : 1955 Any Known Allergies: No known allergies Exam Priority: Routine Procedure(s): Procedure Description: Diagnostic procedure Procedure Description: PCI procedure Procedure Description: Left Heart Catheterization Procedure Description: Left ventriculography Procedure Description: Bare Metal Coronary Stent Procedure Description: PTCA Procedure Description: Coronary Angiography Diagnostic Cath Status: Emergency Diagnostic Findings * Left Main is short and has no significant disease. * Circumflex has diffuse mild to moderate luminal irregularities.. * RCA has multiple prior stents. In the midsegment, stent is totally occluded and has thrombus in it. This is culprit lesion for ST elevation MO. * P * roximal Right Coronary Artery: significant 80% stenosis, RACHEL: 3 flow. * Left Anterior Descending has patent prior stent. Minimal luminal irregularities are seen. * INDICATION: STEMI. * Mid Right Coronary Artery: total occlusion, RACHEL: 0 flow. * Coronary angiography shows right dominance. PCI Status: Emergency PCI Indication: STEMI - Immediate PCI for STEMI Interventional Findings * Procedure detail: We engaged RCA with JR4 guide catheter. IV heparin was administered to maintain anticoagulation. 0.014 run-through guidewire was used to cross totally occluded mid RCA and was put in distal vessel. We dilated the stent with 3.5 x 12 mm NC balloon at high pressure. It restored excellent flow. Proximal to prox RCA prior stent, another significant stenosis was noted. We deployed a 3.5 x 12 mm resolute Sae drug-eluting stent. This was postdilated by 3.5 x 12 mm NC balloon at high pressure. At this time final angiogram was performed that showed excellent stent expansion, no residual stenosis and RACHEL-3 flow. 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 * Proximal Right Coronary Artery: 80% stenosis treated with a MDT R SAE 3.5X12 OLU. 0% residual stenosis, RACHEL: 3 flow. * Mid Right Coronary Artery: 100% stenosis treated with a MDT NC EUPHORA RX [id number] BALLOON. 0% residual stenosis, RACHEL: 3 flow. Conclusions 1. Total thrombotic occlusion of mid RCA stent 2. s/p successful revascularization with balloon angioplasty.. 3. Severe proximal RCA stenosis s/p successful revascularization with OLU x1. 4. Proximal Right Coronary Artery was treated with a Drug Eluting Stent. 5. Mid Right Coronary Artery was treated with a Balloon. Recommendations * Dual antiplatelet therapy for atleast 1 year. * High intensity statin therapy. * Order echocardiogram. * Aggrastat gtt for 4 hours. Interventional RX Recommendation: PCI w/o planned CABG Diagnostic RX Recommendation: PCI w/o planned CABG Anticoagulation: Heparin Pressures Phase:Rest AO : 38 / 28 ( 32 ) @ 1:57:35 PM 32 / 25 ( 28 ) @ 1:57:35 PM 60 / 44 ( 48 ) @ 1:57:35 PM 102 / 76 ( 88 ) @ 1:57:35 PM 132 / 72 ( 99 ) @ 1:57:35 PM 134 / 73 ( 100 ) @ 1:57:35 PM 132 / 72 ( 98 ) @ 1:57:35 PM LV : 130 / 9 / 39 @ 1:57:35 PM 126 / 10 / 39 @ 1:57:35 PM Valves Phase:DefaultPhase AV : 0.0 @ 6:57:35 PM 0.0 @ 6:57:35 PM AV Mean Gradient: 0.0 @ 6:57:35 PM 0.0 @ 6:57:35 PM Clinical Evaluation EBL: 5mL-10mL Procedural Details Procedure Consent Obtained. Admit Source: Emergency department. Pre-Procedure Time Out. Identified patient by full name and date of as verbalized by the patient/guarantor. Does the consent match the physician's order: N/A Emergent; Informed Consent not obtained due to time critical life threat. Accurate & Complete Informed Consent: N/A Emergent; Informed Consent not obtained due to time critical life threat. Inpatient/Outpatient History & Physical on Chart: N/A Emergent; Informed Consent not obtained due to time critical life threat. If H&P is completed, is and addenduem needed: N/A Emergent; Informed Consent not obtained due to time critical life threat; If yes, is the addendum complete: N/A Emergent; Informed Consent not obtained due to time critical life threat. Visualize and Verify Site with Patient/Guarantor: N/A. Relevant Radiology Images available: N/A Emergent; Informed Consent not obtained due to time critical life threat. The risks, benefits, and alternatives of sedation and/or procedure were discussed by physician. The patient agrees to continue. Procedure started. Current diagnosis: STEMI. PERRLA. Strong, equal hand grinder set up operator external bilaterally. Lungs clear x 5 lobes. Oxygen started at 23liters/min via nasal canula. right radial was prepped with chloroprep then draped in the usual sterile fashion. Baseline sample Acquired. HR: 107 BPM. Physician notified. Physician arrived. Physician scrubbed in. Immediate Pre-Procedure Time Out. Correct Patient: N/A Emergent; Informed Consent not obtained due to time critical life threat; Correct Procedure: N/A Emergent; Informed Consent not obtained due to time critical life threat; Correct Site: N/A Emergent; Informed Consent not obtained due to time critical life threat; Correct Patient Position: N/A Emergent; Informed Consent not obtained due to time critical life threat; Correct Supplies: N/A Emergent; Informed Consent not obtained due to time critical life threat; Dried Flammable Prep: N/A Emergent; Informed Consent not obtained due to time critical life threat; Blood Products Available: N/A Emergent; Informed Consent not obtained due to time critical life threat;. Lidocaine 1% infiltrated to the right radial. Arterial access obtained. IV Site on Arrival: 20 gauge in the right anticubital. IV Site on Arrival: 18 gauge in the left anticubital. IV Fluids: 0.9% NaCl at KVO. 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 Pre Procedural Pulses: bilateral radial was 2+. 6 [place] JR 4 guide catheter was inserted over the wire. Multiple views taken of right coronary artery. Runthrough guidewire was advanced through the guide catheter to lesion in the mid RCA. Inflation number : 1 A MDT NC EUPHORA RX [id number] BALLOON was prepped and advanced across the Mid RCA , then inflated to 14 MARTITA for 0:13 seconds. Inflation number: 2 The MDT NC EUPHORA RX [id number] BALLOON was reinflated across the Mid RCA, to 14 MARTITA for 0:11 seconds. Results checked. Inflation number: 3 The MDT NC EUPHORA RX [id number] BALLOON was reinflated across the Mid RCA, to 16 MARTITA for 0:14 seconds. Inflation number: 4 The MDT NC EUPHORA RX [id number] BALLOON was reinflated across the Mid RCA, to 18 MARTITA for 0:16 seconds. Inflation number: 5 The MDT NC EUPHORA RX [id number] BALLOON was reinflated across the Mid RCA, to 18 MARTITA for 0:13 seconds. Results checked. Balloon out. Inflation Number : 1 A MDT R SAE 3.5X12 OLU -Lot Number# [id number] exp date 10/30/23 was prepped and advanced across the Prox RCA. The stent was deployed at 8 MARTITA for 0:11 seconds. Stent balloon and wire out. Inflation number: 6 The MDT NC EUPHORA RX [id number] BALLOON was reinflated across the Mid RCA, to 18 MARTITA for 0:12 seconds. Balloon out. Results checked. A 5 citizen [place] TIG catheter in over wire. Guide catheter out. Multiple views taken of left coronary artery. EDP Sample taken: LV 130/9,39; HR: 87 BPM; SpO2: 100%. Pullback taken: LV 126/10,39; AO 132/72(99); Mean: 0mmHg, Peak to Peak: 0mmHg, SEP: 5sec/min; HR: 87 BPM; SpO2: 100%. ACT drawn. Results 261 seconds. Therapeutic limits - pre-heparin administration 90-150 seconds and monitoring heparin during a vascular procedure >250 seconds. Catheter out. Wire out. Post Procedure: Pulses reassessed and unchanged. PERRLA. Strong, equal hand grinder set up operator external bilaterally. No VTE prophylaxis required. Medication's Wasted: Lidocaine 1% = 3 mL. Medication's Wasted: Nitro = 49.8 mg. Medication's Wasted: Heparin = 4000 units. Total IV fluids: 207 mL. A TR Band was successful obtaining hemostatsis at the Right Radial artery insertion site. Post-op diagnosis: total occluded mid RCA , severe prox RCA stenosis, s/p stent and angioplasty. Complications: none. Estimated blood loss: 5mL-10mL. Responsiveness - Normal response to verbal stimuli; alert and oriented, PERRLA. Airway - Unaffected, no intervention required; spontaneous ventilation. Circulation: W/N/L, pulses unchanged. Nausea/Vomiting: No. Procedure completed. Patient transferred by wheelchair to 1st floor. Vital chart was stopped. Access Site Site: Right Radial artery Sheath Size: 6 Fr Hemostasis Method: TR Band Hemostasis Success: Successful Procedure Medications Start: 6:26 PM Stop: 6:26 PM Medication: Versed Amount: 1 mg Route: I.V. Start: 6:26 PM Stop: 6:26 PM Medication: Fentanyl Amount: 50 mcg Route: I.V. Start: 6:29 PM Stop: 6:29 PM Medication: Versed Amount: 1 mg Route: I.V. Start: 6:31 PM Stop: 6:31 PM Medication: Heparin Amount: 2000 units Route: I.V. Start: 6:32 PM Stop: 6:32 PM Medication: Fentanyl Amount: 50 mcg Route: I.V. Start: 6:37 PM Stop: 6:37 PM Medication: 0.9% Saline Amount: 250 ml Route: I.V. bolus Start: 6:38 PM Stop: 6:38 PM Medication: Aggrastat 12.5 mg/250 mL Amount: 28 ml Route: I.V. bolus Start: 6:38 PM Stop: 6:38 PM Medication: Aggrastat 12.5 mg/250 mL Amount: 10.1 ml/hr Route: I.V. kim Menjivar, the attending physician, have reviewed and verified all procedure medications. Yes, all medications given per verbal order History/Risk Factors Hypertension: No Dyslipidemia: Yes Peripheral Arterial Disease (PAD): No Myocardial Infarction (MO): No Obesity: No Tobacco Use: Current/Recent(w/in 1 year) Prior Interventions PCI: Yes CABG: No Valve Surgery: No Report Signatures Finalized by Nate Antonio MD on 10/01/2022 07:23 PM
--- NOTE | 2022-10-01 18:00 | PM.HP ---
Providers/Chief Complaint Admitting Physician: Nate Antonio MD Primary Care Provider: Senthil Jimenez MD Chief Complaint: Chest pain/ STEMI History of Present Illness Sigifredo Corrales is a 67 year old male with past medical history of CAD s/p prior stents to RCA and LAD, was presented with 30 minutes to 1 hour severe substernal chest pain. It is associated with shortness of breath. EKG performed by EMS showed inferior leads ST elevation. STEMI alert was activated and patient will be brought to cardiac Freelance Recruiter emergently. Review of Systems Narrative: CONSTITUTIONAL: No fever chills weight loss or gain or night sweats. [] HEENT: Normocephalic, atraumatic.[] RESPIRATORY: Shortness of breath CARDIOVASCULAR: Chest pain GI: no nausea vomiting diarrhea. 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 [] MUSCULOSKELETAL: No knee or joint pain or rashes. [] Medications/Allergies Home Medications Medication Instructions Recorded Confirmed Last Taken Type acetaminophen 500 mg capsule 500 mg PO Q6H PRN fever #30 caps 11/21/21 07/10/22 Unknown Rx rosuvastatin 5 mg tablet (Crestor) 5 mg PO DAILY #90 tabs 01/30/22 07/10/22 Unknown Rx ticagrelor 90 mg tablet (Brilinta) 90 mg PO BID #180 tabs 01/30/22 07/10/22 Unknown Rx triamcinolone acetonide 0.1 % 1 applic topical BID #30 grams 02/26/22 07/10/22 Unknown Rx topical cream meloxicam 15 mg tablet 15 mg PO DAILY pain #30 tabs 04/03/22 07/10/22 Unknown Rx nitroglycerin 0.4 mg sublingual 0.4 mg sublingual Q5M PRN chest 04/03/22 07/10/22 Unknown Rx tablet pain #10 tabs omeprazole 20 mg capsule,delayed 20 mg PO .qhs #30 caps 04/03/22 07/10/22 Unknown Rx release tramadol 50 mg tablet 50 mg PO DAILY PRN pain 30 days 08/22/22 Unknown Rx #30 tabs Allergies Allergy/AdvReac Type Severity Reaction Status Date / Time No Known Allergies Allergy Verified 10/01/22 17:59 PFSH Acute PFSH: Medical History ASHD (arteriosclerotic heart disease) Chest pain Current smoker GERD (gastroesophageal reflux disease) History of alcohol abuse Lumbar back pain with radiculopathy affecting lower extremity Mixed hyperlipidemia Myocardial infarct Peripheral vascular disease of extremity S/P angiogram of extremity Surgical History History of appendectomy History of facial fracture repair right cheek History of repair of rotator cuff Hx of tonsillectomy Family History Sister CAD (coronary artery disease), Onset Age: 50 Mother CAD (coronary artery disease), Onset Age: 30 Other Hypertension Denies family history of Cancer Social History Smoking and tobacco status: current every day smoker cigarettes Quit status (tobacco): not considering quitting Second hand smoke exposure: No Alcohol intake: current Alcohol intake frequency: holidays/special occasions only Alcohol type: beer and hard liquor Desire information about alcohol rehabilitation?: No Substance/Drug Use: current Substance/Drug use frequency: daily Other substance/drug use details: Medicinal purposes Desire information about substance/drug rehabilitation?: No Household members: spouse Marital status: Current occupational status: disabled Current gender identity: Male Vitals/I&O/Wt Last Vital Signs Temp 98.2 F 10/01/22 17:52 Pulse 78 10/01/22 17:52 Resp 18 10/01/22 17:52 BP 136/87 10/01/22 17:52 Pulse Ox 100 10/01/22 17:52 Weight last 48 hrs Weight 120 lb Physical Exam Narrative: GENERAL: Patient is alert, awake and oriented x3. [] NECK: No jugular vein distension. [] HEENT: No cyanosis. No icterus. No pallor. [] HEART: Regular S1 and S2. No murmur, rub or gallop. [] LUNGS: Clear to auscultate bilaterally. [] CENTRAL NERVOUS SYSTEM: Grossly nonfocal. [] EXTREMITIES: Lower extremities with no edema A&P Assessment and plan (1) STEMI (ST elevation myocardial infarction): (2) ASHD (arteriosclerotic heart disease): (3) Peripheral vascular disease of extremity: (4) Mixed hyperlipidemia: Plan Patient has presented with inferior wall ST elevation AK. We will emergently take patient to the cardiac Freelance Recruiter. Given aspirin and Plavix. Heparin bolus given We will obtain echocardiogram. Trend troponins. Labs sent Attestations Medical Necessity Statement*: Care expected to cross 2 midnights. Patient has presented with acute ST elevation AK and taken to cardiac Freelance Recruiter emergently Coding Level of Care Code Acute Code for [facility] Fwd Diagnoses STEMI (ST elevation myocardial infarction) I21.3 ASHD (arteriosclerotic heart disease) I25.10 Peripheral vascular disease of extremity I73.9 Mixed hyperlipidemia E78.2
[2022-10-01] MEDS: heparin 5,000 unit/mL INJ 1 mL 3800 UNIT IVP (18:02)
[2022-10-01] MEDS: clopidogrel 300 mg Tablet 600 MG PO (18:02)
--- NOTE | 2022-10-01 19:04 | USCV_ITS ---
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 History of prior cardiac stents. BP: 90 / 58 HR: 73 Rhythm: Sinus Technical Quality: Adequate MEASUREMENTS (Male / Female) Normal Values 2D ECHO LV Diastolic Diameter PLAX 3.9 cm 4.2 - 5.9 / 3.9 - 5.3 cm LV Systolic Diameter PLAX 2.3 cm IVS Diastolic Thickness 0.9 cm 0.6 - 1.0 / 0.6 - 0.9 cm IVS Systolic Thickness 1.5 cm LVPW Diastolic Thickness 0.9 cm 0.6 - 1.0 / 0.6 - 0.9 cm LVPW Systolic Thickness 1.6 cm LVOT Diameter 1.8 cm LV Ejection Fraction 2D Teich 72.8 % LV Ejection Fraction MOD 2C 60.4 % LV Ejection Fraction 2C AL 60.1 % LA Diameter 2.3 cm LA Width 2.6 cm LA Height 3.5 cm RA Width 3.9 cm RA Height 4.3 cm Aorta at Sinotubular Diameter 3.0 cm IVC Diameter 1.9 cm M-MODE Aortic Annulus Diameter 2.9 cm LA Ao Ratio MM 0.7 MV E Point Septal Separation 0.2 cm DOPPLER AV Peak Velocity 98.0 cm/s LVOT Peak Velocity 76.0 cm/s AV Area Cont Eq vti 1.9 cm squared AV Area Cont Eq pk 2.0 cm squared MV Area PHT 4.5 cm squared Mitral E to A Ratio 1.1 MV E' Velocity 96.0 cm/s TR Peak Velocity 227.7 cm/s TR Peak Gradient 20.7 mmHg TV Peak E Velocity 42.0 cm/s Right Atrial Pressure 5.0 mmHg Pulmonary Artery Systolic Pressu 25.7 mmHg PV Peak Velocity 88.0 cm/s RV Acceleration Time 0.1 s RV Ejection Time 0.4 s RV AcT/ET 0.4 FINDINGS Left Ventricle Left ventricle is normal in size. LV systolic function is normal with EF 55 to 60%. Mild hypokinesis of inferior wall. Right Ventricle Normal in size and function Right Atrium Nomal in size Left Atrium Normal in size Mitral Valve Structurally normal mitral valve. Aortic Valve Aortic valve is thickened. Tricuspid Valve Mild tricuspid regurgitation. Pulmonary artery systolic pressure is normal. Pulmonic Valve Not well visualized. Pericardium Normal Aorta Normal in size IVC Appears to be normal CONCLUSIONS LV systolic function is normal with EF 55 to 60%. Mild hypokinesis of inferior wall. Mild tricuspid regurgitation Compared to prior echocardiogram from 2013 no significant changes are seen. Nate Antonio MD (Electronically Signed) Final Date: 02 Oct 2022 17:14 S
[2022-10-01 19:34] LABS: Basophils # 0.1 10^3/uL (0.0-0.1); Basophils % 0.7 %; Eosinophils # 0.3 10^3/uL (0.0-0.8); Eosinophils % 1.8 %; Hematocrit 38.1 % (42.0-52.0); Hemoglobin 12.6 g/dL (11.7-16.6); Lymphocytes # 3.4 10^3/uL (0.8-4.8); Lymphocytes % 22.5 %; Mean Corpuscular HGB Conc 33.1 g/dL (30.0-36.0); Mean Corpuscular Hemoglobin 31.4 pg (28.0-34.0); Mean Platelet Volume 10.1 fL (7.4-10.4); Monocytes # 1.3 10^3/uL (0.2-0.9); Monocytes % 8.5 %; Neutrophils # 9.97 10^3/uL (1.8-7.7); Neutrophils % 66.2 %; Nucleated Red Blood Cells % 0 %; Platelet Count 380 10^3/cmm (130-400); Red Blood Count 4.01 10^6/uL (4.1-5.3); Red Cell Distribution Width 11.6 % (12.1-15.1); White Blood Count 15.1 10^3/uL (4.0-10.0)
[2022-10-01 19:53] LABS: Troponin T (5th) Once 8 ng/L (0-15)
[2022-10-01 19:54] LABS: Alanine Aminotransferase 8 U/L (0-41); Albumin Level 4.4 g/dL (3.5-5.2); Alkaline Phosphatase 89 U/L (40-130); Anion Gap 19.6 (5-19); Aspartate Amino Transferase 13 U/L (0-40); Blood Urea Nitrogen 16 mg/dL (8-23); Calcium 8.9 mg/dL (8.5-10.5); Carbon Dioxide 24 mmol/L (22-29); Chloride 97 mmol/L (98-107); Globulin 2.2 g/dL (1.3-4.6); Glomerular Filtration Rate 84.7 mL/min (90-130); Glucose 158 mg/dL (65-115); Osmolality Calculated 288 mOsm/kg (285-295); Potassium 3.6 mmol/L (3.5-5.1); Sodium 137 mmol/L (136-145); Total Bilirubin 0.2 mg/dL (0.15-1.2); Total Protein 6.6 g/dL (6.6-8.7)
[2022-10-01 20:00] VITALS: BP 90/58; PULSE 88; RESP 13; TEMP 36.6; O2SAT 99
[2022-10-01] MEDS: atorvastatin 40 mg Tablet 80 MG PO (20:36)
[2022-10-01 21:18] VITALS: PULSE 69
--- NOTE | 2022-10-01 21:55 | PC.NURSE ---
Intitiated air removal from TR band at ~2000. Removed 2-3ml of air every 15-20min until all air removed. TR Band removed at this time. No s/s of bleeding or hematoma formation observed. Covered site with 2x2 and bio-occlusive dressing. Instructed patient regarding site care and restrictions. Patient verbalized complete understanding. Will continue to monitor.
[2022-10-02] VITALS (64 sets, daily range): BP systolic 110–127; BP diastolic 52–73; PULSE 54–82; RESP 11–25; TEMP 36.4–37; O2SAT 94–100
--- NOTE | 2022-10-02 00:22 | PC.NURSE ---
Aggrastat stopped at 2310. Dressing to right wrist remains c,d,i with no s/s of bleeding or hematoma formation. Patient continues to deny any pain. Will continue to monitor.
--- NOTE | 2022-10-02 01:49 | PC.NURSE ---
No bleeding or hematoma formation to right wrist observed. Patient denies any pain. Will continue to monitor.
[2022-10-02 06:05] LABS: Basophils # 0.1 10^3/uL (0.0-0.1); Basophils % 0.5 %; Eosinophils % 0.3 %; Hematocrit 37.4 % (42.0-52.0); Hemoglobin 11.5 g/dL (11.7-16.6); Lymphocytes % 10.1 %; Mean Corpuscular HGB Conc 30.7 g/dL (30.0-36.0); Mean Corpuscular Volume 100.8 fl (80-94); Mean Platelet Volume 9.9 fL (7.4-10.4); Monocytes # 0.7 10^3/uL (0.2-0.9); Monocytes % 6.7 %; Neutrophils # 7.94 10^3/uL (1.8-7.7); Nucleated Red Blood Cells % 0 %; Platelet Count 282 10^3/cmm (130-400); Red Blood Count 3.71 10^6/uL (4.1-5.3); Red Cell Distribution Width 11.7 % (12.1-15.1); White Blood Count 9.7 10^3/uL (4.0-10.0)
[2022-10-02 06:41] LABS: Anion Gap 16.7 (5-19); Blood Urea Nitrogen 11 mg/dL (8-23); Calcium 8.5 mg/dL (8.5-10.5); Carbon Dioxide 21 mmol/L (22-29); Chloride 102 mmol/L (98-107); Glomerular Filtration Rate 135.2 mL/min (90-130); Glucose 85 mg/dL (65-115); Osmolality Calculated 281 mOsm/kg (285-295); Potassium 3.7 mmol/L (3.5-5.1); Sodium 136 mmol/L (136-145)
[2022-10-02 06:50] LABS: Creatinine Clr Calc Pharmacy 78.1932
[2022-10-02] MEDS: aspirin 81 mg EC Tablet PO (08:59)
[2022-10-02] MEDS: clopidogrel 75 mg Tablet PO (08:59)
[2022-10-02] MEDS: metoprolol tartrate 25 mg Tablet PO ×2 (08:59→21:10)
[2022-10-02] MEDS: FUROsemide 10 mg/mL SDV 2mL 20 MG IVP (09:17)
--- NOTE | 2022-10-02 09:27 | PM.PN ---
Subjective Subjective: Patient is doing well. no chest pain. Vitals/I&O/Wt Last Vital Signs Temp 98.6 F 10/02/22 04:00 Pulse 82 10/02/22 08:00 Resp 17 10/02/22 08:00 BP 117/52 10/02/22 08:00 Pulse Ox 97 10/02/22 08:00 O2 Del Method Room Air 10/02/22 08:00 10/01/22 10/02/22 10/02/22 22:59 06:59 14:59 Intake Total 240 / 240 Output Total 700 / 700 Balance 240 / 240 -700 / -460 Weight last 48 hrs Weight 120 lb Physical Exam Narrative: GENERAL: Patient is alert, awake and oriented x3. [] NECK: No jugular vein distension. [] HEENT: No cyanosis. No icterus. No pallor. [] HEART: Regular S1 and S2. No murmur, rub or gallop. [] LUNGS: Clear to auscultate bilaterally. [] CENTRAL NERVOUS SYSTEM: Grossly nonfocal. [] EXTREMITIES: Lower extremities with no edema Data 10/02/22 05:31 10/02/22 05:31 A&P Assessment and plan (1) STEMI (ST elevation myocardial infarction): (2) ASHD (arteriosclerotic heart disease): (3) Peripheral vascular disease of extremity: (4) Mixed hyperlipidemia: Plan Coronary angiogram last night showed total occluded mid RCA with thrombus. Balloon angioplasty restored blood flow. Proximal RCA had severe stenosis that underwent successful revascularization with OLU x1. Continue aspirin and Plavix for at least 1 year. High intensity statin therapy Echocardiogram ordered. Pending read. We will start diuresis as patient's LVEDP was elevated. Attestations Medical Necessity Statement*: Care expected to cross 2 midnights. Coding Level of Care Code Acute Code for [facility] Fwd Diagnoses STEMI (ST elevation myocardial infarction) I21.3 ASHD (arteriosclerotic heart disease) I25.10 Peripheral vascular disease of extremity I73.9 Mixed hyperlipidemia E78.2
[2022-10-02] MEDS: atorvastatin 40 mg Tablet 80 MG PO (21:09)
[2022-10-02] MEDS: temazepam 15 mg Capsule PO (21:13)
[2022-10-03] VITALS (52 sets, daily range): BP systolic 129; BP diastolic 61; PULSE 55–79; RESP 3–26; TEMP 36.6–36.8; O2SAT 95–98
[2022-10-03 02:59] LABS: Basophils # 0.1 10^3/uL (0.0-0.1); Basophils % 0.6 %; Eosinophils # 0.1 10^3/uL (0.0-0.8); Eosinophils % 0.9 %; Hematocrit 39.2 % (42.0-52.0); Lymphocytes % 18.3 %; Mean Corpuscular HGB Conc 33.2 g/dL (30.0-36.0); Mean Corpuscular Volume 93.6 fl (80-94); Mean Platelet Volume 9.5 fL (7.4-10.4); Monocytes % 9.6 %; Neutrophils # 7.58 10^3/uL (1.8-7.7); Neutrophils % 70.3 %; Nucleated Red Blood Cells % 0 %; Platelet Count 312 10^3/cmm (130-400); Red Blood Count 4.19 10^6/uL (4.1-5.3); Red Cell Distribution Width 11.5 % (12.1-15.1); White Blood Count 10.8 10^3/uL (4.0-10.0)
[2022-10-03 03:14] LABS: Anion Gap 13.5 (5-19); Blood Urea Nitrogen 12 mg/dL (8-23); Calcium 9.1 mg/dL (8.5-10.5); Carbon Dioxide 24 mmol/L (22-29); Chloride 102 mmol/L (98-107); Creatinine Clr Calc Pharmacy 78.1932; Glomerular Filtration Rate 113.2 mL/min (90-130); Glucose 88 mg/dL (65-115); Osmolality Calculated 281 mOsm/kg (285-295); Potassium 3.5 mmol/L (3.5-5.1); Sodium 136 mmol/L (136-145)
--- NOTE | 2022-10-03 08:34 | P.DS_ITS ---
Discharge Providers Date of Admission: 10/01/22 19:08 Date of Discharge: October 03, 2022 Attending Provider at Admission: Nate Antonio M.D Attending Provider at Discharge: Nate Antonio M.D Primary Care Provider: Senthil Jimenez MD Diagnoses at Discharge Discharge Diagnosis (1) STEMI (ST elevation myocardial infarction): Status: Inactive (2) ASHD (arteriosclerotic heart disease): Status: Acute Permanent problem details: Stents x2 in 2019 and angioplasty on 10/01/[address] Antonio (3) Peripheral vascular disease of extremity: Status: Acute (4) Mixed hyperlipidemia: Status: Acute Reason for Visit Reason for Visit: Chest pain/ STEMI Brief History: 67 year old male with past medical history of CAD s/p prior stents to RCA and LAD presented with 30 minutes to 1 hour severe substernal chest pain. It is associated with shortness of breath. EKG performed by EMS showed inferior leads ST elevation.? STEMI alert was activated and patient will be brought to cardiac Branch Operations Coordinator emergently. Hospital Course Hospital Course Patient underwent coronary angiogram that showed total thrombotic occlusion of mid RCA. He underwent successful revascularization with balloon angioplasty of prior stent and PCI of proximal RCA.He stayed stable and was chest pain-free. Echo showed normal LV systolic function.Patient was discharged home in a stable condition on dual antiplatelet therapy. Physical Exam Narrative: GENERAL: Patient is alert, awake and oriented x3. [] NECK: No jugular vein distension. [] HEENT: No cyanosis. No icterus. No pallor. [] HEART: Regular S1 and S2. No murmur, rub or gallop. [] LUNGS: Clear to auscultate bilaterally. [] CENTRAL NERVOUS SYSTEM: Grossly nonfocal. [] EXTREMITIES: Lower extremities with no edema Discharge Data Studies Completed and Pending Completed Studies During Hospitalization Category Date Time Status APPRENTICE [facility] THIRD STEP request for service Stat Exams 10/01/22 18:00 Completed CV. echo complete* [id number] Routine Ultrasound 10/01/22 19:04 Completed Pending at discharge Category Date Time Status Basic Metabolic Panel AM LABS Lab 10/04/22 04:00 Ordered Complete Blood Count w/Auto AM LABS Lab 10/04/22 04:00 Ordered Laboratory Results WBC 10.8 10^3/uL (4.0-10.0) H 10/03/22 02:44 RBC 4.19 10^6/uL (4.1-5.3) 10/03/22 02:44 Hgb 13.0 g/dL (11.7-16.6) 10/03/22 02:44 Hct 39.2 % (42.0-52.0) L 10/03/22 02:44 MCV 93.6 fl (80-94) D 10/03/22 02:44 MCH 31.0 pg (28.0-34.0) 10/03/22 02:44 MCHC 33.2 g/dL (30.0-36.0) D 10/03/22 02:44 RDW 11.5 % (12.1-15.1) L 10/03/22 02:44 Plt Count 312 10^3/cmm (130-400) 10/03/22 02:44 MPV 9.5 fL (7.4-10.4) 10/03/22 02:44 Neut % (Auto) 70.3 % 10/03/22 02:44 Lymph % (Auto) 18.3 % 10/03/22 02:44 [place] % (Auto) 9.6 % 10/03/22 02:44 Eos % (Auto) 0.9 % 10/03/22 02:44 Baso % (Auto) 0.6 % 10/03/22 02:44 Neut # (Auto) 7.58 10^3/uL (1.8-7.7) 10/03/22 02:44 Lymph # (Auto) 2.0 10^3/uL (0.8-4.8) 10/03/22 02:44 [place] # (Auto) 1.0 10^3/uL (0.2-0.9) H 10/03/22 02:44 Eos # (Auto) 0.1 10^3/uL (0.0-0.8) 10/03/22 02:44 Baso # (Auto) 0.1 10^3/uL (0.0-0.1) 10/03/22 02:44 Nucleated RBC % (auto) 0 % 10/03/22 02:44 Nucleated RBCs # 0.0 /100WBC 10/03/22 02:44 Sodium 136 mmol/L (136-145) 10/03/22 02:44 Potassium 3.5 mmol/L (3.5-5.1) 10/03/22 02:44 Chloride 102 mmol/L (98-107) 10/03/22 02:44 Carbon Dioxide 24 mmol/L (22-29) 10/03/22 02:44 Anion Gap 13.5 (5-19) 10/03/22 02:44 BUN 12 mg/dL (8-23) 10/03/22 02:44 Creatinine 0.7 mg/dL (0.7-1.2) 10/03/22 02:44 GFR Calculation 113.2 mL/min (90-130) 10/03/22 02:44 Glucose 88 mg/dL (65-115) 10/03/22 02:44 Calculated Osmolality 281 mOsm/kg (285-295) L 10/03/22 02:44 Calcium 9.1 mg/dL (8.5-10.5) 10/03/22 02:44 Total Bilirubin 0.2 mg/dL (0.15-1.2) 10/01/22 17:58 AST 13 U/L (0-40) 10/01/22 17:58 ALT 8 U/L (0-41) 10/01/22 17:58 Alkaline Phosphatase 89 U/L (40-130) 10/01/22 17:58 Troponin T Gen 5 ng/L 8 ng/L (0-15) 10/01/22 17:58 Total Protein 6.6 g/dL (6.6-8.7) 10/01/22 17:58 Albumin 4.4 g/dL (3.5-5.2) 10/01/22 17:58 Globulin 2.2 g/dL (1.3-4.6) 10/01/22 17:58 Vitals Last Vital Signs Temp 98.2 F 10/03/22 08:00 Pulse 63 10/03/22 08:15 Resp 19 H 10/03/22 08:15 BP 129/61 10/03/22 08:15 Pulse Ox 98 10/03/22 08:15 O2 Del Method Room Air 10/03/22 03:47 Discharge Plan Discharge Patient Disposition: Home Condition: Stable Prescriptions: New atorvastatin 40 mg Tablet 80 mg PO BEDTIME Qty: 90 3RF clopidogrel 75 mg Tablet 75 mg PO DAILY Qty: 90 3RF aspirin 81 mg Tablet,Delayed Release (Dr/Ec) 81 mg PO DAILY Qty: 90 3RF metoprolol tartrate 25 mg Tablet 25 mg PO BID@0900,2100 Qty: 120 3RF pantoprazole 40 mg tablet,delayed release (DR/EC) 40 mg PO DAILY Qty: 60 2RF lisinopril 2.5 mg tablet 2.5 mg PO DAILY Qty: 90 2RF furosemide 20 mg tablet 20 mg PO DAILY Qty: 60 2RF Continued acetaminophen 500 mg capsule 500 mg PO Q6H PRN (Reason: fever) Qty: 30 0RF nitroglycerin 0.4 mg tablet, sublingual 0.4 mg sublingual Q5M PRN (Reason: chest pain) Qty: 10 0RF Rx Instructions: do not exceed 3 doses per episode tramadol 50 mg tablet 50 mg PO DAILY PRN (Reason: pain) 30 Days Qty: 30 3RF Discontinued omeprazole 20 mg capsule,delayed release(DR/EC) 20 mg PO .qhs Qty: 30 5RF rosuvastatin [Crestor] 5 mg tablet 5 mg PO DAILY Qty: 90 3RF Brilinta 90 mg tablet 90 mg PO BID Qty: 180 3RF No Action meloxicam 15 mg tablet 15 mg PO DAILY PRN (Reason: pain) triamcinolone acetonide 0.1 % cream 1 applic topical BID PRN Discharge Orders: Discharge Order (Routine); Ordered 10/03/22 Ordered By: Nate Antonio Referrals: Senthil Jimenez MD [Primary Care Provider] - 10/18/22 9:30 am (Please follow-up with Dr. Jimenez on October 18 at 9:30A.M. If you have any questions or need to reschedule. Please call ) Lois Ulloa FNP [Nurse Practitioner] - 10/08/22 8:45 am (Please follow-up with Lois Ulloa on October 08 at 8:45A.M. If you have any questions or need to reschedule. Please call ) Discharge Diet: Cardiac Discharge Activity: Increase activity as tolerated Patient Instructions: Coronary Angioplasty (DC), Opioid Safety Discharge Attestations Time Spent in Discharge Care*: greater than 30 min Quality Metrics Clinical Quality Measures [ Acute Myocardial Infaction { Clinical Trial Participant: No; Contraindication to aspirin: None; Aspirin prescribed; Contraindication to statin: None; Statin prescribed; Contraindication to PCI: None; PCI performed;}] Coding Level of Care Code Acute Code for [facility] Fwd Diagnoses STEMI (ST elevation myocardial infarction) I21.3 ASHD (arteriosclerotic heart disease) I25.10 Peripheral vascular disease of extremity I73.9 Mixed hyperlipidemia E78.2
[2022-10-03] MEDS: aspirin 81 mg EC Tablet PO (09:25)
[2022-10-03] MEDS: metoprolol tartrate 25 mg Tablet PO (09:25)
[2022-10-03] MEDS: FUROsemide 10 mg/mL SDV 2mL 20 MG IVP (09:25)
[2022-10-03] MEDS: clopidogrel 75 mg Tablet PO (09:25)
== END 2022-10-03 10:15 | disposition home or self-care (01) | DRG 246 ==
LOC: ER 18:08 → CCL 18:20 → CSU 19:08
PROVIDERS: Admitting Provider Internal Medicine; Emergency Provider Emergency Medicine; PCP Family Medicine Adult Medicine; Visit Provider Internal Medicine
PROC: 027034Z Dilation of Coronary Artery, One Artery with Drug-eluting Intraluminal Device, Percutaneous Approach (ICD-10-PCS; principal; 2022-10-01 18:00)
PROC: 027034Z Dilation of Coronary Artery, One Artery with Drug-eluting Intraluminal Device, Percutaneous Approach (ICD-10-PCS; 2022-10-01 18:00)
DX: T82.867A Thrombosis due to cardiac prosthetic devices, implants and grafts, initial encounter (principal); I21.A9 Other myocardial infarction type; Y84.0 Cardiac catheterization as the cause of abnormal reaction of the patient, or of later complication, without mention of misadventure at the time of the procedure; Y92.9 Unspecified place or not applicable; I25.10 Atherosclerotic heart disease of native coronary artery without angina pectoris; Z95.5 Presence of coronary angioplasty implant and graft; F17.210 Nicotine dependence, cigarettes, uncomplicated; K21.9 Gastro-esophageal reflux disease without esophagitis; M54.16 Radiculopathy, lumbar region; E78.2 Mixed hyperlipidemia; I25.2 Old myocardial infarction; I73.9 Peripheral vascular disease, unspecified; Z82.49 Family history of ischemic heart disease and other diseases of the circulatory system
CPT/HCPCS: 36415; 80048; 80053; 84484; 85025; 85347; 93005; 93306; 93458; 96365; 96367; 96374; 96375; 99152; 99153; 99285; C1725; C1769; C1874; C1887; C1894; C9600; J0461; J1644; J1940; J2250; J3010; J3490; J7030; Q9967

== ENCOUNTER → 2022-10-08 08:33 | Outpatient (BNVA) | payer MEDICARE, MEDICAID, SELFPAY | PROVIDERS: PCP Family Medicine Adult Medicine; Visit Provider Nurse Practitioner Family | DX: I25.10 Atherosclerotic heart disease of native coronary artery without angina pectoris (principal); I73.9 Peripheral vascular disease, unspecified; F17.210 Nicotine dependence, cigarettes, uncomplicated; I25.2 Old myocardial infarction | CPT/HCPCS: 36415; 80048; 99214 ==

== ENCOUNTER → 2022-11-18 13:42 | Outpatient (BNVA) | payer MEDICARE, MEDICAID, SELFPAY | PROVIDERS: PCP Family Medicine Adult Medicine; Visit Provider Internal Medicine | DX: I73.9 Peripheral vascular disease, unspecified (principal); I10 Essential (primary) hypertension; I25.10 Atherosclerotic heart disease of native coronary artery without angina pectoris; F17.210 Nicotine dependence, cigarettes, uncomplicated | CPT/HCPCS: 99214 ==

== ENCOUNTER → 2023-05-27 13:08 | Outpatient (BNVA) | payer MEDICARE, SELFPAY | PROVIDERS: PCP Family Medicine Adult Medicine; Visit Provider Internal Medicine | DX: I73.9 Peripheral vascular disease, unspecified (principal); I10 Essential (primary) hypertension; I25.10 Atherosclerotic heart disease of native coronary artery without angina pectoris; F17.210 Nicotine dependence, cigarettes, uncomplicated | CPT/HCPCS: 99214 ==

== ENCOUNTER → 2023-11-26 15:30 | Outpatient (BNVA) | payer MEDICARE, SELFPAY | PROVIDERS: PCP Family Medicine Adult Medicine; Visit Provider Internal Medicine | DX: I73.9 Peripheral vascular disease, unspecified (principal); I10 Essential (primary) hypertension; I25.10 Atherosclerotic heart disease of native coronary artery without angina pectoris; Z72.0 Tobacco use | CPT/HCPCS: 99214 ==